=== PATIENT | female | born 1985 | race Hispanic/Latino ===

== ENCOUNTER 2017-10-01 14:24 | Emergency (ER) | payer BC ==
[~2017-10-01] VITALS: Ht 162.6 cm; Wt 81.2 kg
[2017-10-01 15:38] VITALS: BP 132/88
== END 2017-10-01 15:39 | disposition home or self-care (01) ==
LOC: FSED 14:24
DX: R07.89 Other chest pain (principal); Z82.49 Family history of ischemic heart disease and other diseases of the circulatory system
CPT/HCPCS: 71046; 80307; 84484; 93005; 99283